=== PATIENT | female | born 1950 | race Caucasian/White ===

== ENCOUNTER 2018-05-28 12:37 | Emergency (ER) | payer OTHER ==
[~2018-05-28] VITALS: Ht 165.1 cm; Wt 72.7 kg
[~2018-05-28 12:37] MED LIST: ALPRAZOLAM2 MG PO; ANAFRANIL75 MG PO; CLONAZEPAM1 MG PO; DIAZEPAM10 MG PO; GABAPENTIN300 MG PO; HYDROXYZINE PAM25 MG PO; KLONOPIN1 MG PO; LIBRIUM25 MG PO; LORAZEPAM0.5 MG PO; LORAZEPAM1 MG PO; LORAZEPAM2 MG PO; METOPROLOL TART25 MG PO; MIRTAZAPINE30 MG PO; PAROXETINE HCL20 MG PO; QUETIAPINE FUM100 MG PO; RESTORIL30 MG PO; TOPAMAX200 MG PO
[2018-05-28 16:20] VITALS: BP 134/77
== END 2018-05-28 16:25 | disposition home or self-care (01) ==
LOC: EME 12:37
DX: F41.1 Generalized anxiety disorder (principal); F32.9 Major depressive disorder, single episode, unspecified; K21.9 Gastro-esophageal reflux disease without esophagitis; Z88.8 Allergy status to other drugs, medicaments and biological substances
CPT/HCPCS: 90839; 99281; 99285; J1630; J3410